=== PATIENT | male | born 1945 | race African-American/Black ===

== ENCOUNTER 2018-09-05 04:19 | Emergency (ER) | payer MEDICARE, OTHER ==
[~2018-09-05] VITALS: Ht 177.8 cm; Wt 82.8 kg
[~2018-09-05 04:19] MED LIST: AMLO-512 PO; ARIP10TA8 PO; DOXY100C PO; FERR-89 PO; MIRT30 PO; OXYB5 PO
[2018-09-05 04:20] VITALS: BP 0/0
[2018-09-05] MEDS ORDERED: EPINEPHrine 1:10,000 [1 MG/10 ML] SYRINGE IVP ONE (04:21)
[2018-09-05] MEDS ORDERED: GABA-531 PO (04:38)
[2018-09-05] MEDS ORDERED: RISP2 PO (04:38)
[2018-09-05] MEDS ORDERED: SERT50TA12 PO (04:38)
[2018-09-05] MEDS ORDERED: TAMS0.4C32 PO (04:38)
[2018-09-05] MEDS ORDERED: HYDR-4061 PO (04:38)
[2018-09-05] MEDS ORDERED: MIRT30TA6 PO (04:38)
[2018-09-05] MEDS ORDERED: FERR325T24 PO (04:38)
[2018-09-05] MEDS ORDERED: AMLO10TA55 PO (04:38)
[2018-09-05] MEDS ORDERED: OXYB5 PO (04:38)
[2018-09-05] MEDS ORDERED: LISI-622 PO (04:38)
[2018-09-05] MEDS ORDERED: ARIP10TA16 PO (04:38)
== END 2018-09-05 08:28 | disposition expired ==
LOC: EDBD 04:20 → EMS 04:20
DX: I46.9 Cardiac arrest, cause unspecified (principal); L97.829 Non-pressure chronic ulcer of other part of left lower leg with unspecified severity
CPT/HCPCS: 82962; 92950; 99285; J0171